=== PATIENT | female | born 1960 | race African-American/Black ===

== ENCOUNTER 2018-05-11 15:54 | Observation (INO) | payer OTHER ==
--- NOTE | 2018-05-11 16:10 | RADIOLOGY REPORT (SQ) ---
EXAM DESCRIPTION: CHEST SINGLE VIEW COMPLETED DATE/TIME: 05/11/2018 4:02 pm REASON FOR STUDY: s/s stroke COMPARISON: None. EXAM PARAMETERS: NUMBER OF VIEWS: One view. TECHNIQUE: Single frontal radiographic view of the chest acquired. RADIATION DOSE: NA LIMITATIONS: Lordotic portable film with EKG electrodes and clothing artifact FINDINGS: LUNGS AND PLEURA: No opacities, masses or pneumothorax. No pleural effusion. MEDIASTINUM AND HILAR STRUCTURES: No masses. Contour normal. HEART AND VASCULAR STRUCTURES: Borderline cardiomegaly BONES: No acute findings. HARDWARE: None in the chest. OTHER: No other significant finding. IMPRESSION: NO ACUTE RADIOGRAPHIC FINDING IN THE CHEST. TECHNICAL DOCUMENTATION: JOB ID: [id number] [employer]- All Rights Reserved Reading location - IP/workstation name: [email or web address]
--- NOTE | 2018-05-11 16:12 | RADIOLOGY REPORT (SQ) ---
EXAM DESCRIPTION: CT HEAD WITHOUT COMPLETED DATE/TIME: 05/11/2018 4:02 pm REASON FOR STUDY: s/s stroke COMPARISON: None. TECHNIQUE: Axial images acquired through the brain without intravenous contrast. Images reviewed wi th bone, brain and subdural windows. Additional sagittal and coronal reconstructions were generated. Images stored on PACS. All CT scanners at this facility use dose modulation, iterative reconstruction, and/or weight based d osing when appropriate to reduce radiation dose to as low as reasonably achievable (ALARA). [facility]: Dose Right [facility]: CareDose [facility]: Dose Right [facility]: Teradose 4D [facility]: [employer] RADIATION DOSE: 53 mGy. LIMITATIONS: None. FINDINGS: VENTRICLES: Normal size and contour. CEREBRUM: No masses. No hemorrhage. No midline shift. No evidence for acute infarction. Normal gra y/white matter differentiation. No areas of low density in the white matter. CEREBELLUM: No masses. No hemorrhage. No alteration of density. No evidence for acute infarction. EXTRAAXIAL SPACES: No fluid collections. No masses. ORBITS AND GLOBE: No intra- or extraconal masses. Normal contour of globe without masses. CALVARIUM: No fracture. PARANASAL SINUSES: No fluid or mucosal thickening. SOFT TISSUES: No mass or hematoma. OTHER: No other significant finding. IMPRESSION: NORMAL BRAIN CT WITHOUT CONTRAST. EVIDENCE OF ACUTE STROKE: NO. COMMENT: Quality ID # [id number]: Final reports with documentation of one or more dose reduction techniques (e.g., Automated exposure control, adjustment of the mA and/or kV according to patient size, use of iterative reconstruction technique) TECHNICAL DOCUMENTATION: JOB ID: [id number] [employer]- All Rights Reserved Reading location - IP/workstation name: [email or web address]
--- NOTE | 2018-05-11 16:34 | ER Document Report ---
ED General - General Chief Complaint: S/S of Possible Stroke Stated Complaint: STROKE ALERT Time Seen by Provider: 05/11/18 16:20 Information source: Patient, Emergency Med Personnel Notes: Patient is a 58-year-old female who supposedly around 8:30 AM felt some pain to her right upper back radiating to the left side of her neck. No trauma. No weakness or numbness at that time. She does state that she felt some "funny feeling" to the right lateral aspect of her neck. She states that around 1215 this pain radiated to her right anterior chest. She states her maximum pain of 3 out of 10. She states the right upper back pain came on slowly. Patient states that around 1230 she started to develop some weakness to her right arm and her right leg. She denies any nausea or vomiting. She states mild shortness of breath. She went to see the primary care physician who called EMS and sent her here for possible stroke alert. Patient denies any blurry or double vision, headache, difficulty speaking, fevers or cough. TRAVEL OUTSIDE OF THE [place] IN LAST 30 DAYS: No - HPI Onset: Other - See above Onset/Duration: Gradual Quality of pain: Other - See above Severity: Moderate Pain Level: Denies Associated symptoms: Other - See above Exacerbated by: Denies Relieved by: Denies Similar symptoms previously: No Recently seen / treated by doctor: No Past Medical History - Social History Smoking Status: Former Smoker Chew tobacco use (# tins/day): No Frequency of alcohol use: None Drug Abuse: None Family History: Reviewed & Not Pertinent Patient has suicidal ideation: No Patient has homicidal ideation: No Endocrine Medical History: Reports: Hx Diabetes Mellitus Type 2 - patient states that it is pre diabetes Renal/ Medical History: Denies: Hx Peritoneal Dialysis GI Medical History: Reports: Hx Gastroesophageal Reflux Disease Past Surgical History: Reports: Hx Breast Surgery Review of Systems - Review of Systems Constitutional: denies: Fever EENT: denies: Eye discharge, Nose discharge Cardiovascular: denies: Palpitations, Dizziness Respiratory: Short of breath. denies: Cough, Hurts to breathe, Wheezing Gastrointestinal: denies: Vomiting Genitourinary: denies: Dysuria Musculoskeletal: denies: Leg swelling Skin: Other - no hives. denies: Rash Neurological/Psychological: Other - no slurred speech -: Yes All other systems reviewed and negative Physical Exam - Vital signs Vitals: Pulse Ox 99 05/11/18 16:02 Notes: Reviewed vital signs and nursing note as charted by RN. CONSTITUTIONAL: Alert and oriented and responds appropriately to questions. Well -appearing; well-nourished HEAD: Normocephalic; atraumatic EYES: PERRL; full extraocular range of motion; no nystagmus noted ENT: Normal nose; no rhinorrhea; moist mucous membranes; pharynx without lesions noted NECK: Supple without meningismus; non-tender to palpation of the posterior or lateral aspects of the neck or trapezius regions without swelling or erythema noted; no carotid bruits; no cervical lymphadenopathy, no masses CARD: Regular rate and rhythm; no murmurs; symmetric distal pulses RESP: Normal chest excursion without splinting or tachypnea; breath sounds clear and equal bilaterally; no wheezes, no rhonchi, no rales ABD/GI: Normal bowel sounds; non-distended; soft, non-tender BACK: The back appears normal and is non-tender to palpation of the entire back including the right upper posterior scapular region EXT: Normal ROM in all joints; non-tender to palpation; no edema SKIN: No acute lesions noted NEURO: CN 2-12 intact; 5/5 bilateral upper extremities with 5 out of 5 strength of the left lower extremity with 4 out of 5 strength to the right lower extremity. No sensory deficit. NIH score is a 1 PSYCH: The patient's mood and manner are appropriate. Grooming and personal hygiene are appropriate. Course - Re-evaluation Re-evalutation: Given the history and physical examination the patient was made a code stroke and taken expeditiously to the CT scan. CT scan of the head unremarkable. Patient's symptoms currently given NIH score of 1. Patient states her symptoms have greatly improved. She now denies any and all pain to the neck, back, or chest. Patient has strong pulses in all 4 extremities. No calf pain or leg swelling. Vital signs as recorded. Given the above history and physical examination I will order a CTA of the neck and the chest. I would like to evaluate for any obvious dissection of the major vessels or arteries of the neck. Given the history and physical examination, NIH score of 1, rapidly improving symptoms, posterior back pain, chest pain, neck pain prior to the incident of weakness, I do not believe the patient is a TPA candidate 05/11/18 16:32 EKG shows a heart rate of 76, normal sinus rhythm, normal axis, no ST elevation or depression, inverted T waves in leads V2 and V3 05/11/18 17:58 Labs and troponin as recorded. Patient has just returned from CT scan of the neck and chest. Patient currently has no focal neurological deficits at this time. She denies any back or chest pain. Vital signs are stable. - Vital Signs Vital signs: Temp Pulse Resp BP Pulse Ox 98.3 F 15 122/78 100 05/11/18 16:34 05/11/18 18:01 05/11/18 18:01 05/11/18 18:01 - Laboratory Result Diagrams: 05/11/18 16:23 05/11/18 16:23 Laboratory results interpreted by me: 05/11/18 16:23 Hgb 11.6 L Hct 35.1 L RDW 15.0 H Discharge - Discharge Clinical Impression: Right sided weakness, Upper back pain on right side Chest pain Qualifiers: Chest pain type: unspecified Qualified Code(s): R07.9 - Chest pain, unspecified Condition: Fair Disposition: ADMITTED OBSERVATION Admitting Provider: Hospitalist Unit Admitted: Telemetry
[2018-05-11 16:41] LABS: ABSOLUTE EOSINOPHILS # (AUTO) 0.1 10^3/uL (0.0-0.6); ABSOLUTE LYMPHOCYTES (AUTO) 1.8 10^3/uL (0.5-4.7); ABSOLUTE MONOCYTES (AUTO) 0.4 10^3/uL (0.1-1.4); ABSOLUTE NEUT (AUTO) 3.4 10^3/uL (1.7-8.2); BASOPHILS % (AUTO) 0.6 % (0-2); EOSINOPHILS % (AUTO) 2.2 % (0-6); HEMATOCRIT 35.1 % (36.0-47.0); HEMOGLOBIN 11.6 g/dL (12.0-15.5); MEAN CORPUSCULAR HEMOGLOBIN 28.1 pg (27.0-33.4); MEAN CORPUSCULAR HGB CONC 33.1 g/dL (32.0-36.0); MEAN CORPUSCULAR VOLUME 85 fl (80-97); MONOCYTES % (AUTO) 7.3 % (3-13); PLATELET COUNT 273 10^3/uL (150-450); RED BLOOD COUNT 4.13 10^6/uL (3.72-5.28); SEGMENTED NEUTROPHILS % (AUTO) 58.9 % (42-78); TOTAL CELLS COUNTED % (AUTO) 100 %; WHITE BLOOD COUNT 5.8 10^3/uL (4.0-10.5)
[2018-05-11 16:54] LABS: ALANINE AMINOTRANSFERASE 16 U/L (9-52); ALKALINE PHOSPHATASE 58 U/L (38-126); ANION GAP 10 (5-19); ASPARTATE AMINO TRANSFERASE 17 U/L (14-36); BILIRUBIN,DIRECT 0.2 mg/dL (0.0-0.4); BILIRUBIN,TOTAL 0.2 mg/dL (0.2-1.3); BLOOD UREA NITROGEN 12 mg/dL (7-20); CALCIUM 9.4 mg/dL (8.4-10.2); CARBON DIOXIDE 23 mmol/L (22-30); CHLORIDE 107 mmol/L (98-107); CREATINE KINASE 96 U/L (30-135); GLUCOSE 103 mg/dL (75-110); POTASSIUM 4.1 mmol/L (3.6-5.0); SODIUM 139.5 mmol/L (137-145); TOTAL PROTEIN 6.9 g/dL (6.3-8.2)
[2018-05-11 17:12] LABS: CREATINE KINASE MB 0.71 ng/mL (<4.55); TROPONIN I < 0.012 ng/mL
[2018-05-11 17:16] LABS: INTERNATIONAL RATION (INR) 0.84
[2018-05-11 17:17] LABS: PARTIAL THROMBOPLASTIN TIME 28.7 SEC (23.5-35.8)
[2018-05-11 17:19] LABS: PROTHROMBIN TIME 11.9 SEC (11.4-15.4)
[2018-05-11] MEDS ORDERED: ASPIRIN 325 MG TABLET PO ONE (18:04)
--- NOTE | 2018-05-11 18:11 | RADIOLOGY REPORT (SQ) ---
EXAM DESCRIPTION: CTA CHEST; CTA NECK COMPLETED DATE/TIME: 05/11/2018 5:54 pm REASON FOR STUDY: tr2, See note COMPARISON: None. TECHNIQUE: CT scan of the neck and chest performed using helical scanning technique with dynamic int ravenous contrast injection. Images reviewed with lung, soft tissue and bone windows. Reconstructed coronal and sagittal MPR images reviewed. Additional 3 dimensional post-processing performed to develop Maximal Intensity Projection images ([place] P). All images stored on PACS. All CT scanners at this facility use dose modulation, iterative reconstruction, and/or weight based d osing when appropriate to reduce radiation dose to as low as reasonably achievable (ALARA). [facility]: Dose Right [facility]: CareDose [facility]: Dose Right [facility]: Teradose 4D [facility]: [employer] CONTRAST TYPE AND DOSE: contrast/concentration: Isovue 350.00 mg/ml; Total Contrast Delivered: 75.0 ml; Total Saline Delivered: 75.0 ml Contrast bolus optimized for the thoracic aorta and carotid arteries. Nondiagnostic for the pulmonar y arteries. RENAL FUNCTION: GFR > 60. RADIATION DOSE: CT Rad equipment meets quality standard of care and radiation dose reduction techniq ues were employed. CTDIvol: 42.3 - 65.6 mGy. DLP: 2255 mGy-cm. . LIMITATIONS: None. FINDINGS: LUNGS AND PLEURA: No masses, infiltrates, or pneumothorax. No pleural effusions or pleura l calcifications. AORTA AND GREAT VESSELS: No aneurysm. No dissection. Normal contour and caliber. 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 CAROTID AND VERTEBRAL ARTERIES: No evidence of aneurysm or dissection. There are unusual courses of the bilateral internal carotid arteries. The right internal carotid artery has a very medial, retro pharyngeal course, in the left internal carotid artery has a very lateral course. HEART: No pericardial effusion. No significant coronary artery calcifications. PULMONARY ARTERIES: No emboli visualized in the main pulmonary arteries or the segmental branches. HILAR AND MEDIASTINAL STRUCTURES: No identified masses or abnormal nodes. HARDWARE: None in the chest. UPPER ABDOMEN: No significant findings. Limited exam. THYROID AND OTHER SOFT TISSUES: No masses. No adenopathy. BONES: No acute or significant finding. 3D MIPS: Confirm above findings. OTHER: No other significant finding. IMPRESSION: 1. No evidence of dissection or other acute aortic or carotid syndrome. 2. 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 Th e right internal carotid artery has a very medial, retropharyngeal course, in the left internal carot id artery has a very lateral course. COMMENT: Quality ID # [id number]: Final reports with documentation of one or more dose reduction techniques (e.g., Automated exposure control, adjustment of the mA and/or kV according to patient size, use of iterative reconstruction technique) TECHNICAL DOCUMENTATION: JOB ID: [id number] [employer]- All Rights Reserved Reading location - IP/workstation name: [email or web address]
--- NOTE | 2018-05-11 18:11 | RADIOLOGY REPORT (SQ) ---
EXAM DESCRIPTION: CTA CHEST; CTA NECK COMPLETED DATE/TIME: 05/11/2018 5:54 pm REASON FOR STUDY: tr2, See note COMPARISON: None. TECHNIQUE: CT scan of the neck and chest performed using helical scanning technique with dynamic int ravenous contrast injection. Images reviewed with lung, soft tissue and bone windows. Reconstructed coronal and sagittal MPR images reviewed. Additional 3 dimensional post-processing performed to develop Maximal Intensity Projection images ([place] P). All images stored on PACS. All CT scanners at this facility use dose modulation, iterative reconstruction, and/or weight based d osing when appropriate to reduce radiation dose to as low as reasonably achievable (ALARA). [facility]: Dose Right [facility]: CareDose [facility]: Dose Right [facility]: Teradose 4D [facility]: [employer] CONTRAST TYPE AND DOSE: contrast/concentration: Isovue 350.00 mg/ml; Total Contrast Delivered: 75.0 ml; Total Saline Delivered: 75.0 ml Contrast bolus optimized for the thoracic aorta and carotid arteries. Nondiagnostic for the pulmonar y arteries. RENAL FUNCTION: GFR > 60. RADIATION DOSE: CT Rad equipment meets quality standard of care and radiation dose reduction techniq ues were employed. CTDIvol: 42.3 - 65.6 mGy. DLP: 2255 mGy-cm. . LIMITATIONS: None. FINDINGS: LUNGS AND PLEURA: No masses, infiltrates, or pneumothorax. No pleural effusions or pleura l calcifications. AORTA AND GREAT VESSELS: No aneurysm. No dissection. Normal contour and caliber. 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 CAROTID AND VERTEBRAL ARTERIES: No evidence of aneurysm or dissection. There are unusual courses of the bilateral internal carotid arteries. The right internal carotid artery has a very medial, retro pharyngeal course, in the left internal carotid artery has a very lateral course. HEART: No pericardial effusion. No significant coronary artery calcifications. PULMONARY ARTERIES: No emboli visualized in the main pulmonary arteries or the segmental branches. HILAR AND MEDIASTINAL STRUCTURES: No identified masses or abnormal nodes. HARDWARE: None in the chest. UPPER ABDOMEN: No significant findings. Limited exam. THYROID AND OTHER SOFT TISSUES: No masses. No adenopathy. BONES: No acute or significant finding. 3D MIPS: Confirm above findings. OTHER: No other significant finding. IMPRESSION: 1. No evidence of dissection or other acute aortic or carotid syndrome. 2. 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 Th e right internal carotid artery has a very medial, retropharyngeal course, in the left internal carot id artery has a very lateral course. COMMENT: Quality ID # [id number]: Final reports with documentation of one or more dose reduction techniques (e.g., Automated exposure control, adjustment of the mA and/or kV according to patient size, use of iterative reconstruction technique) TECHNICAL DOCUMENTATION: JOB ID: [id number] [employer]- All Rights Reserved Reading location - IP/workstation name: [email or web address]
[2018-05-11] MEDS ORDERED: ONDANSETRON 4 MG TAB.RAPDIS PO PRN (19:07)
[2018-05-11] MEDS ORDERED: KETOROLAC TROMETHAMINE INJ/PF 30 MG/1 ML SDV IV PRN (19:14)
[2018-05-11] MEDS ORDERED: HYDROXYZINE PAMOATE 50 MG CAPSULE PO PRN (19:18)
[2018-05-11] MEDS ORDERED: CYCLOBENZAPRINE HCL 10 MG TABLET PO PRN (19:22)
--- NOTE | 2018-05-11 19:41 | PDOC H&P ---
History of Present Illness Admission Date/PCP: 05/11/18 18:51 Patient complains of: Right shoulder pain, right arm and leg weakness History of Present Illness: JOEL STINSON is a 58 year old woman who has very few medical problems. She does tell me that she has been under a significant amount of stress lately at work. Her corroborates this. The patient was at [employer] last night and she tells me that she all of a sudden realize that a man was kind of holding her up and said that she looked like she was about to pass out. She immediately felt better and so she left. She got home and ate feeling like maybe she had not had enough to eat that day. This morning she felt fine and so she went to work. Around 9 AM while walking around the office she began to have severe pain in her right shoulder blade that radiated around to her anterior chest. A coworker noted that she looked like she was having a hard time moving her right leg and she did say that her right leg felt heavy. At that point she was taken to the [facility] physician's office. There she was treated for possible stroke and was transferred to the ER under code stroke instructions. She feels a lot better now though she still continues to have right shoulder blade pain that sometimes radiates around to the right chest. She continues to have a little bit of weakness in the right arm. Her speech is normal. She is not confused. In the ER she underwent CTA of the neck and chest and while there is abnormal anatomy found there is no evidence of dissection or other acute concerning problem. CT of the head is negative for acute stroke or other problem. MRI of the brain is pending now. She is being admitted to the hospitalist service under observation status for evaluation. Past Medical History Cardiac Medical History: Denies: Atrial Fibrillation, Congestive Heart Failure, Coronary Artery Disease, Myocardial Infarction Pulmonary Medical History: Denies: Asthma, Chronic Obstructive Pulmonary Disease (COPD) EENT Medical History: Denies: Ears Neurological Medical History: Denies: Hemorrhagic CVA, Ischemic CVA, Seizures Endocrine Medical History: Reports: Diabetes Mellitus Type 2 - patient states that it is pre diabetes Renal/ Medical History: Denies: Chronic Kidney Disease Malignancy Medical History: Denies: None GI Medical History: Reports: Gastroesophageal Reflux Disease Musculoskeltal Medical History: Denies: Arthritis Skin Medical History: Denies: Eczema, Psoriasis Psychiatric Medical History: Denies: Alcohol Dependency, Dementia, Depression, General Anxiety Disorder, Substance Abuse, Tobacco Dependency Traumatic Medical History: Denies: None Hematology: Denies: Anemia Infectious Medical History: Reports: None Past Surgical History Past Surgical History: Reports: Other - Breast reduction surgery 2014, vaginal cyst removal, ? 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 She is active in her local [employer]. She has a who is here in the ER with her and she has 5 children and 2 grandchildren. All of her immediate family are highly educated. - Advance Directive Resuscitation Status: Full Code Surrogate healthcare decision maker:: Yoselin Stinson, phone [phone] Family History Parental Family History Reviewed: Yes - Dad at 99 and had CVA and CAD, mom with a brain aneurysm Children Family History Reviewed: Yes - All children healthy Sibling(s) Family History Reviewed.: Yes - Sister with COPD, sister with heart problems, sister with kidney failure Medication/Allergy Home Medications: Metformin HCl [Metformin HCl ER] 05/11/18 Allergies/Adverse Reactions: No Known Allergies Allergy (Unverified 05/11/18 19:30) Review of Systems Constitutional: PRESENT: fatigue. ABSENT: chills, fever(s) Eyes: ABSENT: visual disturbances Ears: ABSENT: hearing changes Nose, Mouth, and Throat: ABSENT: mouth pain, sore throat Cardiovascular: PRESENT: chest pain, palpitations. ABSENT: dyspnea on exertion , edema, orthropnea Respiratory: ABSENT: cough, dyspnea, sputum Gastrointestinal: ABSENT: abdominal pain, bloating, diarrhea, hematemesis, nausea, vomiting Genitourinary: ABSENT: difficulty urinating Musculoskeletal: PRESENT: back pain, muscle weakness. ABSENT: deformity Integumentary: ABSENT: diaphoresis, lesions, pruritus Neurological: ABSENT: abnormal speech, confusion, convulsions, dizziness Psychiatric: ABSENT: anxiety, depression Endocrine: ABSENT: cold intolerance, heat intolerance Hematologic/Lymphatic: ABSENT: easy bleeding, easy bruising Physical Exam Vital Signs: Temp Pulse Resp BP Pulse Ox 98.3 F 14 132/95 H 100 05/11/18 16:34 05/11/18 19:01 05/11/18 19:01 05/11/18 19:01 General appearance: PRESENT: cooperative, mild distress, well-developed, well- nourished Head exam: PRESENT: atraumatic, normocephalic Eye exam: ABSENT: conjunctiva pink, scleral icterus Ear exam: PRESENT: normal external ear exam Mouth exam: PRESENT: moist Neck exam: ABSENT: lymphadenopathy, tenderness Respiratory exam: PRESENT: clear to auscultation wes, unlabored. ABSENT: rales , rhonchi, wheezes Cardiovascular exam: PRESENT: RRR. ABSENT: systolic murmur Pulses: PRESENT: normal radial pulses, normal dorsalis pedis pul Vascular exam: PRESENT: normal capillary refill GI/Abdominal exam: PRESENT: normal bowel sounds, soft. ABSENT: distended, firm , guarding, tenderness Rectal exam: PRESENT: deferred Extremities exam: ABSENT: calf tenderness, joint swelling, pedal edema Musculoskeletal exam: PRESENT: normal inspection Neurological exam: PRESENT: alert, awake, oriented to person, oriented to place , oriented to situation, CN II-XII grossly intact, other - strength 5/5 in all extremities except right arm 4+/5 Psychiatric exam: PRESENT: appropriate affect, other - Expresses significant amount of stress in her life. ABSENT: agitated, anxious Focused psych exam: ABSENT: restlessness Skin exam: PRESENT: dry, intact, warm Results Impressions: Chest X-Ray 05/11/18 15:57 IMPRESSION: NO ACUTE RADIOGRAPHIC FINDING IN THE CHEST. Head CT 05/11/18 15:57 IMPRESSION: NORMAL BRAIN CT WITHOUT CONTRAST. EVIDENCE OF ACUTE STROKE: NO. Chest/Abdomen CTA 05/11/18 16:28 IMPRESSION: 1. No evidence of dissection or other acute aortic or carotid syndrome. 2. 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 The right internal carotid artery has a very medial, retropharyngeal course, in the left internal carotid artery has a very lateral course. Neck CTA 05/11/18 16:28 IMPRESSION: 1. No evidence of dissection or other acute aortic or carotid syndrome. 2. 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 The right internal carotid artery has a very medial, retropharyngeal course, in the left internal carotid artery has a very lateral course. Assessment & Plan - Diagnosis (1) Right arm weakness Is this a current diagnosis for this admission?: Yes Plan: Patient has had strokelike symptoms for the past at least several hours. She now has persistent right arm weakness but it is just barely weaker than the left. Otherwise her neuro exam is normal. CT of the head is negative and MRI is pending. Echocardiogram is ordered. CTA of the neck is also negative for acute changes that she does have some abnormal anatomy. Patient has received what appears to be a full aspirin in the ER and she tells me that she was given 4 baby aspirin at the outpatient clinic and so have not given aspirin tonight. We will start baby aspirin in the morning we will divide DVT prophylaxis with heparin 5000 units subcu every 8 hours. PT and OT have been ordered. Statin has been started, lipid panel is pending. She is normotensive. (2) Type 2 diabetes mellitus Is this a current diagnosis for this admission?: Yes Plan: Patient describes that she has "prediabetes". She is on metformin 1000 mg daily and that will be started tomorrow. Hemoglobin A1c has been ordered. (3) Constipation Is this a current diagnosis for this admission?: Yes Plan: She has struggled with this for several years. She has had a colonoscopy that did not elucidate etiology. I am providing a Dulcolax suppository tonight and will start her on senna 2 tabs twice daily. She tells me that she has been taking Linzess from time to time but it does not really work well for her. (4) Palpitations Is this a current diagnosis for this admission?: Yes Plan: She had intermittent palpitations today. First troponin is negative. She has some nonspecific T wave changes on her EKG. EKG repeat is pending now. Cardiac enzymes will be trended tonight. She will be admitted on telemetry. (5) Chest pain Qualifiers: Chest pain type: unspecified Qualified Code(s): R07.9 - Chest pain, unspecified Is this a current diagnosis for this admission?: Yes Plan: Troponin x1-, cardiac enzymes will be trended tonight, EKG pending for nonspecific T wave inversions. She admitted on telemetry. She had a CTA of the chest in the ER and there was no evidence of dissection or other acute change, she does have variant aortic and carotid anatomy however. (6) Upper back pain on right side Is this a current diagnosis for this admission?: Yes Plan: Unclear etiology. Considering muscle spasm given the degree of stress that she has in her life right now. I decided not to order Toradol given the fact that she has had so many aspirin and she is also on heparin. I have ordered Flexeril 10 mg p.o. every 8 hours. She tells me that she will not likely use any medication for pain tonight. (7) Anxiety Is this a current diagnosis for this admission?: Yes Plan: She has not been diagnosed with anxiety disorder and we had a long discussion about treatment for anxiety and also for stress reduction. She agrees to possibly try a Vistaril tonight so I have ordered Vistaril 50 mg p.o. every 8 hours. We also talked about the importance of regular exercise for stress reduction and also the importance of other modalities such as massage. She will discuss this with her doctor on discharge. - Time Time Spent: Greater than 70 Minutes Medications reviewed and adjusted accordingly: Yes Anticipated discharge: Home
[2018-05-11] MEDS ORDERED: BISACODYL 10 MG SUPP.RECT PR ONE ×2 (20:00→22:20)
[2018-05-11 20:05] LABS: APPEARANCE,URINE CLEAR; BILIRUBIN,URINE NEGATIVE (NEGATIVE); COLOR,URINE COLORLESS; GLUCOSE, URINE NEGATIVE (NEGATIVE); KETONES,URINE NEGATIVE (NEGATIVE); LEUKOCYTE ESTERASE,URINE TRACE (NEGATIVE); NITRITE,URINE NEGATIVE (NEGATIVE); PROTEIN,URINE NEGATIVE (NEGATIVE); URINE SPECIFIC GRAVITY 1.006; UROBILINOGEN,URINE NEGATIVE mg/dL (<2.0)
--- NOTE | 2018-05-11 21:06 | RADIOLOGY REPORT (SQ) ---
CLINICAL HISTORY: tr2; transient right sided weakness COMPARISON: None. TECHNIQUE: MR BRAIN WITHOUT IV CONTRAST on 05/11/2018 6:11 PM [employer] FINDINGS: There are no areas of restricted diffusion. There is minimal fluid in the inferior left mastoid air cells. There is mild diffuse cerebral atrophy. There is no acute hemorrhage, mass or midline shift. Paranasal sinuses and orbits are clear. IMPRESSION: No acute findings. No hemorrhage or stroke.
[2018-05-11] MEDS ORDERED: SIMVASTATIN 40 MG TABLET PO SCH (22:00)
[2018-05-11 23:04] LABS: CREATINE KINASE MB 0.57 ng/mL (<4.55)
[2018-05-11 23:11] LABS: TROPONIN I < 0.012 ng/mL
[2018-05-11] MEDS: HEPARIN SOD (PORCINE) 5,000 UNIT/ML 1 ML SYRINGE SUBCUT SCH (23:16)
[2018-05-11] MEDS: SENNOSIDES/DOCUSATE 8.6-50 MG 1 EACH TABLET PO SCH (23:16)
[2018-05-12 04:54] LABS: HEMATOCRIT 33.9 % (36.0-47.0); HEMOGLOBIN 11.3 g/dL (12.0-15.5); MEAN CORPUSCULAR HGB CONC 33.5 g/dL (32.0-36.0); MEAN CORPUSCULAR VOLUME 84 fl (80-97); PLATELET COUNT 244 10^3/uL (150-450); RED BLOOD COUNT 4.04 10^6/uL (3.72-5.28); WHITE BLOOD COUNT 4.5 10^3/uL (4.0-10.5)
[2018-05-12 05:18] LABS: ANION GAP 7 (5-19); BLOOD UREA NITROGEN 9 mg/dL (7-20); CALCIUM 8.9 mg/dL (8.4-10.2); CARBON DIOXIDE 25 mmol/L (22-30); CHLORIDE 109 mmol/L (98-107); CHOLESTEROL 182.55 mg/dL (0-200); CREATINE KINASE 77 U/L (30-135); GLUCOSE 92 mg/dL (75-110); POTASSIUM 3.9 mmol/L (3.6-5.0); SODIUM 141.3 mmol/L (137-145); TRIGLYCERIDES 76 mg/dL (<150)
[2018-05-12 05:32] LABS: DIRECT LDL 107 mg/dL (<100)
[2018-05-12 05:33] LABS: CREATINE KINASE MB 0.45 ng/mL (<4.55)
[2018-05-12 05:42] LABS: TROPONIN I < 0.012 ng/mL
[2018-05-12] MEDS: HEPARIN SOD (PORCINE) 5,000 UNIT/ML 1 ML SYRINGE SUBCUT SCH ×2 (06:35→14:24)
--- NOTE | 2018-05-12 07:48 | EKG REPORT ---
SEVERITY:- OTHERWISE NORMAL ECG - SINUS ARRHYTHMIA, RATE [id number] : Confirmed by: Adela Medley MD 12-May-2018 07:47:45
--- NOTE | 2018-05-12 07:48 | EKG REPORT ---
SEVERITY:- BORDERLINE ECG - SINUS RHYTHM BORDERLINE T ABNORMALITIES, ANTERIOR LEADS : Confirmed by: Adela Medley MD 12-May-2018 07:47:40
[2018-05-12] MEDS ORDERED: ASPIRIN 81 MG TABLET, ENT COATED PO SCH (10:00)
--- NOTE | 2018-05-12 13:09 | XCELERA REPORT ---
[address] [address] Transthoracic Echocardiogram Report Name: JOEL ROY Age: 58 yrs Gender: Female : 1960 Patient Status: Inpatient Patient Location: [place] [id number]^A Study Date: 05/11/2018 07:33 PM Height: 65 in Weight: 232 lb BSA: 2.1 m2 Procedure: A two-dimensional transthoracic echocardiogram with color flow and Doppler was performed. Study Quality: Poor. Images were not obtained from all of the standard acoustic windows due to the limited scope of the study. Reason For Study: stroke like symptoms History: TIA. Ordering Physician: MANJINDER KRISHNA Performed By: Jenn Bergman Interpretation Summary There is no obvious cardiac source of embolus noted on this transthoracic echocardiogram. Follow-up with a MATTHEW is suggested if cardiac source is still suspected. The left ventricle is normal in size. There is normal left ventricular wall thickness. No True apical 2 chamber views obtained.Hence cannot comment on the apical anterior , the basal anterior, the basal inferior and apical inferior hatch.The mid anterior , the mid inferior and the rest of the LV hatch contract normally. .Normal LVEF is normal and is greater than 60% in the limited views. Doppler measurements suggest impaired left ventricular relaxation, which is associated with grade I/IV or mild diastolic dysfunction The right ventricle is not well visualized secondary to technical limitations Right atrium not well visualized secondary to technical limitations The left atrial size is normal. There is no evidence of mitral valve prolapse. There is no vegetation seen on the mitral valve. There is no mitral valve stenosis. There is no aortic valve stenosis There is no LVOT obstruction. There is no pulmonic valvular stenosis. There is a trace amount of pulmonic regurgitation There is a trace amount of aortic regurgitation There is no tricuspid stenosis. There is a trace amount of tricuspid regurgitation Unable to calculate RVSP due lack of TR jet. There is no pericardial effusion. There is no obvious cardiac source of embolus noted on this transthoracic echocardiogram. Follow-up with a MATTHEW is suggested if cardiac source is still suspected MMode/2D Measurements & Calculations RVDd: 2.4 cm LVIDd: 5.3 cm FS: 35.3 % Ao root diam: 2.6 cm IVSd: 0.80 cm LVIDs: 3.4 cm EDV(Teich): 135.2 ml Ao root area: 5.4 cm2 LVPWd: 0.82 cm ESV(Teich): 48.4 ml LA dimension: 3.5 cm EF(Teich): 64.2 % Doppler Measurements & Calculations MV E max kenyatta: MV P1/2t max kenyatta: Ao V2 max: AI max kenyatta: 67.6 cm/sec 106.2 cm/sec 107.4 cm/sec 176.2 cm/sec MV A max kenyatta: MV P1/2t: 63.5 msec Ao max PG: AI max P.4 mmHg 84.4 cm/sec MVA(P1/2t): 3.5 cm2 4.6 mmHg AI dec slope: MV E/A: 0.80 MV dec slope: 296.1 cm/sec2 AI P1/2t: 174.2 msec 489.5 cm/sec2 MV dec time: 0.19 sec LV V1 max PG: TV V2 max: PA V2 max: PI end-d kenyatta: 3.2 mmHg 83.3 cm/sec 79.6 cm/sec 91.7 cm/sec LV V1 max: TV max P.8 mmHg PA max P.3 cm/sec 2.5 mmHg AV P1/2t-pr_phl: MV P1/2t-pr_phl: 174.2 msec 63.5 msec Left Ventricle The left ventricle is normal in size. There is normal left ventricular wall thickness. No True apical 2 chamber views obtained.Hence cannot comment on the apical anterior , the basal anterior, the basal inferior and apical inferior hatch.The mid anterior , the mid inferior and the rest of the LV hatch contract normally. .Normal LVEF is normal and is greater than 60% in the limited views. Doppler measurements suggest impaired left ventricular relaxation, which is associated with grade I/IV or mild diastolic dysfunction. Right Ventricle The right ventricle is not well visualized secondary to technical limitations. Atria Right atrium not well visualized secondary to technical limitations. The left atrial size is normal. Mitral Valve There is no evidence of mitral valve prolapse. There is no vegetation seen on the mitral valve. There is no mitral valve stenosis. There is a trace amount of mitral regurgitation. Aortic Valve There is no aortic valvular vegetation. There is no aortic valve stenosis. There is no LVOT obstruction. There is a trace amount of aortic regurgitation. Tricuspid Valve There is no tricuspid stenosis. There is a trace amount of tricuspid regurgitation. Unable to calculate RVSP due lack of TR jet. Pulmonic Valve There is no pulmonic valvular stenosis. There is a trace amount of pulmonic regurgitation. Great Vessels The aortic root is normal size. Effusions There is no pericardial effusion. : MANJINDER KRISHNA > Adela Medley
[2018-05-12 13:47] LABS: CREATINE KINASE MB 0.42 ng/mL (<4.55)
[2018-05-12 13:52] LABS: TROPONIN I < 0.012 ng/mL
[2018-05-12] MEDS: SENNOSIDES/DOCUSATE 8.6-50 MG 1 EACH TABLET PO SCH (14:24)
[2018-05-12 15:05] VITALS: BP 113/64
--- NOTE | 2018-05-12 15:22 | PDOC DISCHARGE SUMMARY ---
General - Admit/Disc Date/PCP Admission Date/Primary Care Provider: 05/11/18 18:51 Discharge Date: 05/12/18 - Discharge Diagnosis (1) Stroke-like symptoms Is this a current diagnosis for this admission?: Yes Summary: Patient was transferred to the ER from an outpatient setting as a code stroke. CT of her head was negative. MRI of her brain was negative. CTA of the neck did not show carotid stenosis. Echocardiogram did not show source of stroke. Of note she has variant aortic and carotid anatomy and we have given her her CT scan so that she can show her doctor. Secondary to the possibility of a TIA with right leg and right arm weakness which waxed and waned and is now resolved , with no evidence of focal neurologic deficit, she will be discharged to continue a baby aspirin daily, statin daily. Neurology follow-up appointment will be made. She knows to return to medical care with any concerning symptoms. (2) Upper back pain on right side Is this a current diagnosis for this admission?: Yes Summary: Not entirely clear etiology though muscle spasm is on the differential. Her pain is significantly improved. She did not use anything for pain overnight except a heating pack. I have discharged the patient with Flexeril 10 mg p.o. every 8 hours as needed with instructions to try this at home first as it may cause somnolence. She knows she can return to the ER with any recurrence of concerning symptoms. She had CTA of the neck chest and abdomen which was not significant for any acute vascular problems. (3) Weakness Is this a current diagnosis for this admission?: Yes Summary: Patient had possible right leg weakness and then intermittent right arm weakness both as an outpatient and when she presented to the ER. She has been followed by physical therapy and they have not found any focal neurologic deficits and they did find that she does have some bilateral weakness in various muscle groups for which they recommend outpatient physical therapy. That will be ordered for her for discharge. (4) Type 2 diabetes mellitus Is this a current diagnosis for this admission?: Yes Summary: Patient has been told that she has prediabetes. Her hemoglobin A1c is less than 6 during this admission. She takes metformin and consistently at home. Due to having had IV contrast she will be off of her metformin for 2 weeks and then will restart her discussion with her doctor. (5) Constipation Is this a current diagnosis for this admission?: Yes Summary: Patient has struggled with chronic constipation. I started her on senna twice daily and she can up or down titrate with the assistance of her doctor. She also received a Dulcolax suppository. She did have a bowel movement with these measures today. (6) Chest pain Is this a current diagnosis for this admission?: Yes Summary: Patient has been chest pain-free since admission. Her EKG was not concerning. Troponins were negative. She does not have a history of coronary disease but she is prediabetic. Will follow up with her doctor. (7) Anxiety Is this a current diagnosis for this admission?: Yes Summary: Patient states that she does have a significant amount of stress and has struggled a little bit with anxiety. She did not try the Vistaril that I ordered for her as needed but I am prescribing this for her to take home and try at home, recommended that she try this first at home as it could cause somnolence. We also talked about other stress reduction modalities such as regular exercise. She will discuss this with your doctor. We also talked about the possibility of counseling which, again, she will discuss with her outpatient doctor. She tells me that she has never been suicidal. - Additional Information Resuscitation Status: Full Code Discharge Diet: Cardiac, Diabetic Discharge Activity: Slowly Increase Activity Prescriptions: Aspirin [Ecotrin 81 mg EC Tablet] 81 mg PO DAILY 30 Days #30 tabec Cyclobenzaprine HCl [Flexeril 10 mg Tablet] 10 mg PO Q8HP PRN 15 Days #15 tablet PRN Reason: Hydroxyzine Pamoate [Vistaril 50 mg Capsule] 50 mg PO Q8HP PRN 15 Days #15 capsule PRN Reason: Sennosides/Docusate 8.6-50 mg [Senna Plus Tablet] 2 each PO BID 30 Days #60 tablet Simvastatin [Zocor 40 mg Tablet] 40 mg PO QHS 30 Days #30 tablet Home Medications: Metformin HCl [Metformin HCl ER] 500 mg PO DAILY 05/11/18 Aspirin [Ecotrin 81 mg EC Tablet] 81 mg PO DAILY 30 Days #30 tabec 05/12/18 Cyclobenzaprine HCl [Flexeril 10 mg Tablet] 10 mg PO Q8HP PRN 15 Days #15 tablet 05/12/18 Hydroxyzine Pamoate [Vistaril 50 mg Capsule] 50 mg PO Q8HP PRN 15 Days #15 capsule 05/12/18 Sennosides/Docusate 8.6-50 mg [Senna Plus Tablet] 2 each PO BID 30 Days #60 tablet 05/12/18 Simvastatin [Zocor 40 mg Tablet] 40 mg PO QHS 30 Days #30 tablet 05/12/18 History of Present Illness Patient complains of: right back pain radiating to anterior chest History of Present Illness: JOEL ROY is a 58 year old woman who has very few medical problems. She does tell me that she has been under a significant amount of stress lately at work. Her corroborates this. The patient was at [employer] last night and she tells me that she all of a sudden realize that a man was kind of holding her up and said that she looked like she was about to pass out. She immediately felt better and so she left. She got home and ate feeling like maybe she had not had enough to eat that day. This morning she felt fine and so she went to work. Around 9 AM while walking around the office she began to have severe pain in her right shoulder blade that radiated around to her anterior chest. A coworker noted that she looked like she was having a hard time moving her right leg and she did say that her right leg felt heavy. At that point she was taken to the [facility] [place] physician's office. There she was treated for possible stroke and was transferred to the ER under code stroke instructions. She feels a lot better now though she still continues to have right shoulder blade pain that sometimes radiates around to the right chest. She continues to have a little bit of weakness in the right arm. Her speech is normal. She is not confused. In the ER she underwent CTA of the neck and chest and while there is abnormal anatomy found there is no evidence of dissection or other acute concerning problem. CT of the head is negative for acute stroke or other problem. MRI of the brain is pending now. She is being admitted to the hospitalist service under observation status for evaluation. Hospital Course Hospital Course: please see problem list Physical Exam Vital Signs: Temp Pulse Resp BP Pulse Ox 98.4 F 70 18 115/84 97 05/12/18 12:02 05/12/18 14:00 05/12/18 12:02 05/12/18 12:02 05/12/18 12:02 Intake & Output 05/11/18 05/12/18 05/13/18 06:59 06:59 06:59 Output Total 600 Balance -600 Weight 101.5 kg General appearance: PRESENT: no acute distress, cooperative, obese Head exam: PRESENT: atraumatic, normocephalic Eye exam: ABSENT: conjunctival injection, scleral icterus Mouth exam: PRESENT: neck supple, tongue midline Teeth exam: ABSENT: poor dentation Neck exam: ABSENT: lymphadenopathy Respiratory exam: PRESENT: unlabored. ABSENT: clear to auscultation wes, rales , rhonchi, wheezes Cardiovascular exam: PRESENT: RRR. ABSENT: systolic murmur Pulses: PRESENT: normal radial pulses, normal dorsalis pedis pul GI/Abdominal exam: PRESENT: normal bowel sounds, soft. ABSENT: distended, firm , guarding, tenderness Rectal exam: PRESENT: deferred Gentrourinary exam: ABSENT: indwelling catheter Extremities exam: ABSENT: joint swelling, pedal edema Musculoskeletal exam: PRESENT: normal inspection. ABSENT: deformity Neurological exam: PRESENT: alert, awake, oriented to person, oriented to place , oriented to situation, CN II-XII grossly intact. ABSENT: aphasic Psychiatric exam: PRESENT: appropriate affect. ABSENT: agitated, anxious Skin exam: PRESENT: dry, intact, warm Results Laboratory Results: 05/12/18 04:28 05/12/18 04:28 05/12/18 05/12/18 04:28 04:28 WBC 4.5 RBC 4.04 Hgb 11.3 L Hct 33.9 L MCV 84 MCH 28.0 MCHC 33.5 RDW 15.0 H Plt Count 244 Sodium 141.3 Potassium 3.9 Chloride 109 H Carbon Dioxide 25 Anion Gap 7 BUN 9 Creatinine 0.63 Est GFR ( Amer) > 60 Est GFR (Non-Af Amer) > 60 Glucose 92 Calcium 8.9 Triglycerides 76 Cholesterol 182.55 LDL Cholesterol Direct 107 H VLDL Cholesterol 15.0 HDL Cholesterol 60 05/11/18 05/11/18 05/12/18 22:31 22:31 04:28 Creatine Kinase 85 CK-MB (CK-2) 0.57 0.45 Troponin I < 0.012 < 0.012 05/12/18 05/12/18 05/12/18 04:28 12:16 12:16 Creatine Kinase 77 69 CK-MB (CK-2) 0.42 Troponin I < 0.012 Impressions: Chest X-Ray 05/11/18 15:57 IMPRESSION: NO ACUTE RADIOGRAPHIC FINDING IN THE CHEST. Head CT 05/11/18 15:57 IMPRESSION: NORMAL BRAIN CT WITHOUT CONTRAST. EVIDENCE OF ACUTE STROKE: NO. Chest/Abdomen CTA 05/11/18 16:28 IMPRESSION: 1. No evidence of dissection or other acute aortic or carotid syndrome. 2. 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 The right internal carotid artery has a very medial, retropharyngeal course, in the left internal carotid artery has a very lateral course. Neck CTA 05/11/18 16:28 IMPRESSION: 1. No evidence of dissection or other acute aortic or carotid syndrome. 2. 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 The right internal carotid artery has a very medial, retropharyngeal course, in the left internal carotid artery has a very lateral course. Head MRI 05/11/18 18:11 IMPRESSION: No acute findings. No hemorrhage or stroke. Qualifiers - * PATIENT BEING DISCHARGED WITH ANY OF THE FOLLOWING DIAGNOSIS: No
== END 2018-05-12 15:15 | disposition home or self-care (01) ==
LOC: ER 15:54 → EH 18:51 → 3N 20:58
PROVIDERS: ADMIT Family Medicine; ATTEND Family Medicine
DX: M62.81 Muscle weakness (generalized) (principal); M54.89 Other dorsalgia; E11.9 Type 2 diabetes mellitus without complications; K59.09 Other constipation; R07.89 Other chest pain; F41.9 Anxiety disorder, unspecified; M25.511 Pain in right shoulder; R53.83 Other fatigue; R00.2 Palpitations; Z79.84 Long term (current) use of oral hypoglycemic drugs; Z56.6 Other physical and mental strain related to work; Z82.49 Family history of ischemic heart disease and other diseases of the circulatory system; Z82.3 Family history of stroke; R06.02 Shortness of breath; Z98.890 Other specified postprocedural states; Z87.891 Personal history of nicotine dependence
CPT/HCPCS: 93005 ×2; 99285; 36415 ×2; 82553 ×2; 82550 ×2; 85025; 85027; 85610; 85730; 80048; 80053; 81001; 84484 ×2; 83036; 80061; 93306; 70551; 71045; 70450; 70498; 71275; 93010; 97162; J1644 ×2; J3490 ×2; G0378

== ENCOUNTER → 2020-01-31 | Outpatient (CLI) | payer OTHER ==
--- NOTE | 2020-01-31 18:19 | WOMENS IMAGING REPORT ---
EXAM DESCRIPTION: U/S ABDOMEN LIMITED IMAGES COMPLETED DATE/TIME: 01/31/2020 10:59 am REASON FOR STUDY: R10.11 RIGHT UPPER QUADRANT PAIN R10.11 RIGHT UPPER QUADRANT PAIN COMPARISON: None. TECHNIQUE: Dynamic and static grayscale images acquired of the abdomen and recorded on PACS. Additio nal selected color Doppler and spectral images recorded. LIMITATIONS: None. FINDINGS: PANCREAS: No masses. Visualized pancreatic duct normal caliber. LIVER: No masses. Echotexture normal. LIVER VASCULATURE: Normal directional flow of the main portal vein and hepatic veins. GALLBLADDER: No stones. Normal wall thickness. No pericholecystic fluid. ULTRASOUND-DETECTED YOUNG'S SIGN: Negative. INTRAHEPATIC DUCTS AND COMMON DUCT: CBD and intrahepatic ducts normal caliber. No filling defects. INFERIOR VENA CAVA: Normal flow. AORTA: No aneurysm. RIGHT KIDNEY: Normal size. Normal echogenicity. No solid or suspicious masses. No hydronephrosis. No calcifications. PERITONEAL AND RIGHT PLEURAL SPACE: No ascites or effusions. OTHER: No other significant findings. IMPRESSION: NORMAL RIGHT UPPER QUADRANT ULTRASOUND. TECHNICAL DOCUMENTATION: JOB ID: [id number] [employer]- All Rights Reserved Reading location - IP/workstation name: [email or web address]
== END ==
LOC: WI 07:27
PROVIDERS: ATTEND Surgery
DX: R10.11 Right upper quadrant pain (principal)
CPT/HCPCS: 76705